=== PATIENT | female | born 1980 ===

== ENCOUNTER → 2020-10-27 | Emergency (ER) | payer OTHER ==
[~2020-10-27] VITALS: Ht 160 cm; Wt 100.2 kg
[~2020-10-27] MED LIST: DOLOGESIC-DF 51 EACH PO; NASAL MIST126 ML NASAL; ZITHROMAX500 MG PO
== END | disposition home or self-care (01) ==
LOC: ER 20:35
DX: U07.1 COVID-19 (principal); B34.9 Viral infection, unspecified; R50.9 Fever, unspecified